=== PATIENT | female | born 1960 | race Caucasian/White ===

== ENCOUNTER → 2016-02-24 | Outpatient (CLI) | payer BC ==
[~2016-02-24] MED LIST: CHOL200018 PO; CNC1KV IM; METF-380 PO
--- OUTSIDE RECORDS SUMMARY | 2016-02-24 07:20 | XMS REPORT ---
Author Author Rose Alcantara [facility] Address [address] [facility] [address] [place], [place] [id number] Care Team Providers Care Lab Intern Name Role Phone Rose Alcantara PCP Unavailable Allergies and Adverse Reactions Name Reaction Notes No known drug allergy Plan of Treatment Planned Activity Comments Planned Date Planned Time Plan/Goal US EXAM PELVIC COMPLETE 11/09/2015 12:00 AM TRANSVAGINAL US NON-OB 11/09/2015 12:00 AM Medications Active Name Start Date Estimated Completion Date SIG Comments metformin 1,000 mg oral tablet take 1 tablet (1,000 mg) by oral route 2 times per day with morning and evening meals Vitamin B-12 1,000 mcg/mL injection solution inject 1 milliliter (1,000 mcg) by intramuscular route once a month Vitamin D3 2,000 unit oral tablet take 1 tablet by oral route daily Problem List Not available. Vital Signs Date Time BP-Sys(mm[Hg] BP-Neris(mm[Hg]) HR(bpm) RR(rpm) Temp WT HT HC BMI BSA BMI Percentile O2 Sat(%) 11/02/2015 9:02:00 AM 105 mmHg 71 mmHg 61 bpm 98.4 F 141.375 lbs 65.5 in 23.17 kg/m2 1.72 m2 Social History Name Description Comments Tobacco Former smoker Quit in 1991 Alcohol Never History of Procedures Not available. Results Summary Not available. History Of Immunizations Not available. History of Past Illness Name Date of Onset Comments Degenerative arthritis Diabetes mellitus, Type 2 Headache Dysmenorrhea Nov 02 2015 9:34AM History of PCOS Nov 02 2015 9:34AM Dysmenorrhea Nov 02 2015 9:06AM PCOS (polycystic ovarian syndrome) Nov 02 2015 9:06AM Payers Insurance Name Company Name Plan Name Plan Number Policy Number Policy Group Number Start Date [employer]BS [facility] [id number] N/A History of Encounters Visit Date Visit Type Provider 11/02/[address] Rose Alcantara MD
--- NOTE | 2016-02-25 18:28 | Diagnostic Imaging Report ---
Bilateral screening mammogram The current study was also evaluated with a Computer Aided Detection (CAD) system. Indication: Screening. No current complaints stated on the questionnaire. COMPARISON: 01/23/15. FINDINGS: The breasts are composed of heterogeneously dense parenchyma which may decrease mammographic sensitivity. There is no mass, architectural distortion or suspicious cluster of calcification. Allowing for technique and positional differences, no suspicious change is seen. IMPRESSION: No significant change. ACR BI-RADS Category 2: Benign findings. Result letter will be mailed to the patient. Note: At least 10% of breast cancer is not imaged by mammography. Dictated by: Dictated on workstation # [id number]
== END ==
LOC: RAD 07:17
PROVIDERS: ATTEND Obstetrics & Gynecology Gynecology
DX: Z12.31 Encounter for screening mammogram for malignant neoplasm of breast (principal)